=== PATIENT | male | born 1990 | race Caucasian/White ===

== ENCOUNTER 2020-04-09 09:31 | Emergency (ER) | payer OTHER ==
[~2020-04-09] VITALS: Ht 167.6 cm; Wt 74.8 kg
[~2020-04-09 09:31] MED LIST: ASPI325; CEPH500 PO; CLIN300 PO; CRUTCH3 USE; HYDACE5 PO; IBUP800; PENVK500 PO; PHENY100ER; RXHYDACE PO; RXIBUP800 PO; RXSULTRIDS PO; SULTRIDS PO
== END 2020-04-09 11:35 | disposition home or self-care (01) ==
LOC: ER 09:31
DX: S61.211A Laceration without foreign body of left index finger without damage to nail, initial encounter (principal); F17.200 Nicotine dependence, unspecified, uncomplicated; Z23 Encounter for immunization; W26.8XXA Contact with other sharp object(s), not elsewhere classified, initial encounter
CPT/HCPCS: 12001; 90471; 90714; 99282-25